=== PATIENT | male | born 1965 | race Two or more races ===

== ENCOUNTER → 2017-05-18 | Outpatient (CLI) | payer OTHER ==
[~2017-05-18] MED LIST: ALDACTONE25 MG PO; ALEVE220 MG PO; ASPIRIN325 MG PO; COREG25 MG PO; CRESTOR40 MG PO; DAYPRO600 MG; FLEXERIL10 MG PO; FLONASE 50 MCG/16 GM NS; IMDUR30 MG PO; LINZESS290 MCG PO; NITROGLYCERIN0.4 MG SL; NORCO 5-325 MG1 TAB PO; NORVASC10 MG PO; PRILOSEC40 MG PO; RANEXA ER500 MG PO; VASOTEC10 MG PO
== END | disposition disaster alternative care site (69) ==
LOC: GRAD 09:54 → GKIC 10:30
DX: M54.16 Radiculopathy, lumbar region (principal); M47.896 Other spondylosis, lumbar region; M48.06 Spinal stenosis, lumbar region